=== PATIENT | female | born 1970 | race Caucasian/White ===

== ENCOUNTER 2021-06-10 16:13 | Emergency (ER) | payer MEDICARE, OTHER ==
[~2021-06-10] VITALS: Ht 162.6 cm; Wt 88.5 kg
[2021-06-10 16:13] VITALS: BP 144/79
[2021-06-10 17:09] LABS: BASOPHILS % (AUTO) 0.5 % (0.0-5.0); EOSINOPHILS % (AUTO) 0.3 % (0.0-8.0); HEMATOCRIT 41.3 % (36-48); LYMPHOCYTES % (AUTO) 38.9 % (21.0-51.0); MEAN CORPUSCULAR HEMOGLOBIN 30.3 pg (27.0-33.0); MEAN CORPUSCULAR HGB CONC 34.4 g/dL (32.0-36.0); MEAN CORPUSCULAR VOLUME 88.1 fL (79-99); MONOCYTES % (AUTO) 8.4 % (3.0-13.0); NEUTROPHILS % (AUTO) 51.6 % (40.0-77.0); PLATELET COUNT (AUTO) 275 K/uL (130-400); RED BLOOD CELL COUNT(AUTO) 4.69 MIL/uL (4.00-5.50); WHITE BLOOD COUNT (AUTO) 7.5 K/uL (4.8-10.8)
[2021-06-10 17:20] LABS: CREATININE 0.9 mg/dL (0.5-1.5); POTASSIUM 3.2 mmol/L (3.5-5.1)
[2021-06-10 17:25] LABS: ALBUMIN 3.6 g/dL (3.5-5.0); BILIRUBIN,TOTAL 0.2 mg/dL (0.2-1.0); TOTAL PROTEIN, SERUM 7.1 g/dL (6.0-8.3)
[2021-06-10] MEDS ORDERED: DICL50TA9 PO (18:53)
== END 2021-06-10 19:03 | disposition home or self-care (01) ==
LOC: EDH 16:13
DX: M79.89 Other specified soft tissue disorders (principal); E87.1 Hypo-osmolality and hyponatremia; E11.9 Type 2 diabetes mellitus without complications; I10 Essential (primary) hypertension; M79.7 Fibromyalgia; J44.9 Chronic obstructive pulmonary disease, unspecified; F31.9 Bipolar disorder, unspecified; Z90.49 Acquired absence of other specified parts of digestive tract; Z88.8 Allergy status to other drugs, medicaments and biological substances; Z88.6 Allergy status to analgesic agent; Z98.890 Other specified postprocedural states
CPT/HCPCS: 36415; 80053; 83880; 85025; 93005; 93971

== ENCOUNTER 2021-07-06 16:14 | Emergency (ER) | payer MEDICARE ==
[~2021-07-06] VITALS: Ht 162.6 cm; Wt 93.4 kg
[~2021-07-06 16:14] MED LIST: DICL50TA9 PO
[2021-07-06 17:25] LABS: BASOPHILS % (AUTO) 0.5 % (0.0-5.0); EOSINOPHILS % (AUTO) 0.1 % (0.0-8.0); HEMATOCRIT 43.6 % (36-48); LYMPHOCYTES % (AUTO) 46.5 % (21.0-51.0); MEAN CORPUSCULAR HEMOGLOBIN 31.3 pg (27.0-33.0); MEAN CORPUSCULAR HGB CONC 34.4 g/dL (32.0-36.0); MONOCYTES % (AUTO) 7.6 % (3.0-13.0); PLATELET COUNT (AUTO) 245 K/uL (130-400); RED BLOOD CELL COUNT(AUTO) 4.79 MIL/uL (4.00-5.50); RED CELL DISTRIBUTION WIDTH 12.5 % (11.0-15.5); WHITE BLOOD COUNT (AUTO) 7.4 K/uL (4.8-10.8)
[2021-07-06 17:26] LABS: APPEARANCE,URINE Clear (CLEAR); BILIRUBIN,URINE Negative (NEGATIVE); COLOR,URINE Yellow (YELLOW); GLUCOSE, URINE (UA) Negative (NEGATIVE); KETONES,URINE Negative (NEGATIVE); LEUKOCYTE ESTERASE ,URINE Negative (NEGATIVE); NITRATE,URINE Negative (NEGATIVE); OCCULT BLOOD,URINE Negative (NEGATIVE); PH,URINE 7.5 (5.0-8.0); PROTEIN,URINE Negative (NEGATIVE); UROBILINOGEN,URINE 0.2 mg/dL (0.2-1.0)
[2021-07-06 17:34] LABS: CREATININE 0.9 mg/dL (0.5-1.5); POTASSIUM 3.4 mmol/L (3.5-5.1)
[2021-07-06 17:41] LABS: ALBUMIN 3.9 g/dL (3.5-5.0); BILIRUBIN,TOTAL 0.4 mg/dL (0.2-1.0); TOTAL PROTEIN, SERUM 7.5 g/dL (6.0-8.3)
[2021-07-06] MEDS ORDERED: DICY20TA3 PO (19:14)
[2021-07-06] MEDS ORDERED: L.AC1CAP6 PO (19:14)
[2021-07-06] MEDS ORDERED: ONDA4TAB10 PO (19:14)
[2021-07-06] MEDS ORDERED: ONDANSETRON 4MG INJ IVP ONE (19:30)
[2021-07-06] MEDS ORDERED: POTASSIUM BICARB/CIT AC 25 MEQ TABLET.EFF PO ONE (19:30)
[2021-07-06] MEDS ORDERED: 0.9%NACL 1000ML 1,000 ML IV ONE (19:30)
[2021-07-06 20:55] VITALS: BP 152/84
== END 2021-07-06 20:57 | disposition home or self-care (01) ==
LOC: EDH 16:14
DX: K52.9 Noninfective gastroenteritis and colitis, unspecified (principal); E86.0 Dehydration; I10 Essential (primary) hypertension; E11.9 Type 2 diabetes mellitus without complications; E78.00 Pure hypercholesterolemia, unspecified; G40.909 Epilepsy, unspecified, not intractable, without status epilepticus; M19.90 Unspecified osteoarthritis, unspecified site; F41.9 Anxiety disorder, unspecified; F31.9 Bipolar disorder, unspecified; Z90.49 Acquired absence of other specified parts of digestive tract; Z98.890 Other specified postprocedural states; Z20.822 Contact with and (suspected) exposure to COVID-19
CPT/HCPCS: 36415; 71045; 80053; 81003; 84484; 85025; 87635; 87804 ×2; 93005; 96361; 96374; 99285; C9803; J2405; J7030

== ENCOUNTER 2021-08-26 19:13 | Emergency (ER) | payer MEDICARE ==
[~2021-08-26] VITALS: Ht 162.6 cm; Wt 93.9 kg
[~2021-08-26 19:13] MED LIST changes: +DICY20TA3 PO; +L.AC1CAP6 PO; +ONDA4TAB10 PO
[2021-08-26 19:56] VITALS: BP 156/77
[2021-08-26] MEDS ORDERED: ACETAMINOPHEN 500 MG TABLET PO ONE (22:00)
[2021-08-26] MEDS ORDERED: AMOX/CLAV 875/125MG TAB PO ONE (22:00)
[2021-08-26] MEDS ORDERED: ACET-66 PO (22:05)
[2021-08-26] MEDS ORDERED: AMOX1TAB16 PO (22:05)
== END 2021-08-26 22:37 | disposition home or self-care (01) ==
LOC: EDH 19:13
DX: K08.89 Other specified disorders of teeth and supporting structures (principal); E11.9 Type 2 diabetes mellitus without complications; I10 Essential (primary) hypertension; F43.10 Post-traumatic stress disorder, unspecified; Z88.8 Allergy status to other drugs, medicaments and biological substances; Z88.6 Allergy status to analgesic agent; Z79.899 Other long term (current) drug therapy; Z90.49 Acquired absence of other specified parts of digestive tract

== ENCOUNTER 2021-09-01 07:56 | Emergency (ER) | payer MEDICARE ==
[~2021-09-01] VITALS: Ht 162.6 cm; Wt 93.9 kg
[~2021-09-01 07:56] MED LIST changes: +ACET-66 PO; +AMOX1TAB16 PO
[2021-09-01 09:24] LABS: BASOPHILS % (AUTO) 0.8 % (0.0-5.0); EOSINOPHILS % (AUTO) 0.2 % (0.0-8.0); HEMATOCRIT 38.8 % (36-48); LYMPHOCYTES % (AUTO) 47.2 % (21.0-51.0); MEAN CORPUSCULAR HEMOGLOBIN 30.6 pg (27.0-33.0); MEAN CORPUSCULAR HGB CONC 34.3 g/dL (32.0-36.0); MEAN CORPUSCULAR VOLUME 89.4 fL (79-99); MONOCYTES % (AUTO) 7.5 % (3.0-13.0); NEUTROPHILS % (AUTO) 44.1 % (40.0-77.0); PLATELET COUNT (AUTO) 267 K/uL (130-400); RED BLOOD CELL COUNT(AUTO) 4.34 MIL/uL (4.00-5.50); RED CELL DISTRIBUTION WIDTH 12.5 % (11.0-15.5); WHITE BLOOD COUNT (AUTO) 6.2 K/uL (4.8-10.8)
[2021-09-01] MEDS ORDERED: TRAMADOL HCL 50 MG TABLET PO ONE (09:30)
[2021-09-01 09:35] LABS: CARBON DIOXIDE 33 mmol/L (21-32); CHLORIDE 100 mmol/L (101-111); GLOMERULAR FILTR. RATE CALC 62 mL/min (>60); GLUCOSE,RANDOM 90 mg/dL (70-105); POTASSIUM 4.4 mmol/L (3.5-5.1); SODIUM SERUM 139 mmol/L (136-145); UREA NITROGEN, BLOOD 15 mg/dL (7-18)
[2021-09-01 09:39] LABS: ACETAMINOPHEN < 1 mcg/mL (10-30); ALANINE AMINOTRANSFERASE 51 U/L (12-78); ALBUMIN 3.7 g/dL (3.5-5.0); ALCOHOL, BLOOD < 3 mg/dL (0-10); ASPARTATE AMINOTRANSFERASE 24 U/L (10-37); BILIRUBIN,TOTAL 0.2 mg/dL (0.2-1.0); SALICYLATE 4.9 mg/dL (2.8-20.0); TOTAL PROTEIN, SERUM 7.1 g/dL (6.0-8.3)
[2021-09-01 09:40] LABS: APPEARANCE,URINE CLEAR (CLEAR); BILIRUBIN,URINE NEGATIVE (NEGATIVE); COLOR,URINE YELLOW (YELLOW); GLUCOSE, URINE (UA) NEGATIVE (NEGATIVE); KETONES,URINE NEGATIVE (NEGATIVE); LEUKOCYTE ESTERASE ,URINE NEGATIVE (NEGATIVE); NITRATE,URINE NEGATIVE (NEGATIVE); OCCULT BLOOD,URINE NEGATIVE (NEGATIVE); PH,URINE 6.5 (5.0-8.0); PROTEIN,URINE NEGATIVE (NEGATIVE); UROBILINOGEN,URINE 0.2 mg/dL (0.2-1.0)
[2021-09-01 09:48] LABS: AMPHET/METH SCREEN,URINE NEGATIVE (NEGATIVE); BARBITURATE SCREEN, URINE NEGATIVE (NEGATIVE); BENZODIAZEPINES SCREEN,URINE NEGATIVE (NEGATIVE); CANNABINOID SCREEN,URINE NEGATIVE (NEGATIVE); COCAINE SCREEN,URINE NEGATIVE (NEGATIVE); OPIATE SCREEN,URINE NEGATIVE (NEGATIVE); PHENCYCLIDINE SCREEN,URINE NEGATIVE (NEGATIVE)
[2021-09-01] MEDS ORDERED: TRAM50TA4 PO (10:33)
[2021-09-01 10:40] VITALS: BP 136/64
== END 2021-09-01 10:43 | disposition home or self-care (01) ==
LOC: EDH 07:56
DX: K08.89 Other specified disorders of teeth and supporting structures (principal); R22.41 Localized swelling, mass and lump, right lower limb; M79.10 Myalgia, unspecified site; E11.9 Type 2 diabetes mellitus without complications; F31.9 Bipolar disorder, unspecified; I10 Essential (primary) hypertension; J44.9 Chronic obstructive pulmonary disease, unspecified; Z79.899 Other long term (current) drug therapy; Z88.5 Allergy status to narcotic agent; Z90.49 Acquired absence of other specified parts of digestive tract
CPT/HCPCS: 36415; 80053; 80305; 81003; 85025; 99283; G0481

== ENCOUNTER 2021-09-11 16:56 | Emergency (ER) | payer MEDICARE, OTHER ==
[~2021-09-11] VITALS: Ht 162.6 cm; Wt 99.8 kg
[~2021-09-11 16:56] MED LIST changes: +TRAM50TA4 PO
[2021-09-11 16:57] VITALS: BP 131/74
[2021-09-11] MEDS ORDERED: ACETAMINOPHEN 500 MG TABLET PO ONE (17:30)
[2021-09-11] MEDS ORDERED: CLINDAMYCIN 150 MG CAP PO ONE (17:30)
[2021-09-11 17:40] LABS: BASOPHILS % (AUTO) 0.4 % (0.0-5.0); EOSINOPHILS % (AUTO) 0.4 % (0.0-8.0); HEMATOCRIT 44.9 % (36-48); LYMPHOCYTES % (AUTO) 43.5 % (21.0-51.0); MEAN CORPUSCULAR HEMOGLOBIN 30.3 pg (27.0-33.0); MEAN CORPUSCULAR HGB CONC 35.4 g/dL (32.0-36.0); MEAN CORPUSCULAR VOLUME 85.5 fL (79-99); NEUTROPHILS % (AUTO) 43.7 % (40.0-77.0); PLATELET COUNT (AUTO) 243 K/uL (130-400); RED BLOOD CELL COUNT(AUTO) 5.25 MIL/uL (4.00-5.50); RED CELL DISTRIBUTION WIDTH 12.4 % (11.0-15.5); WHITE BLOOD COUNT (AUTO) 2.8 K/uL (4.8-10.8)
[2021-09-11 18:01] LABS: ALBUMIN 3.8 g/dL (3.5-5.0); CREATININE 1.1 mg/dL (0.5-1.5); POTASSIUM 3.4 mmol/L (3.5-5.1); TOTAL PROTEIN, SERUM 7.3 g/dL (6.0-8.3)
[2021-09-11] MEDS ORDERED: CLIN-141 PO (18:07)
[2021-09-11] MEDS ORDERED: IBUP-2071 PO (18:07)
[2021-09-11 18:38] LABS: BAND NEUTROPHILS % (MANUAL) 1 % (0-2); LYMPHOCYTES % (MANUAL) 38 % (22-44); MAN.DIFF COMMENT-IMPRESSION MANUAL DIFFERENTIAL; MONOCYTES % (MANUAL) 14 % (2-9); PLATELET MORPHOLOGY COMMENT ADEQUATE; REACTIVE LYMPHOCYTES 5 % (0-0); SEGMENTED NEUTROPHILS % 42 % (40-70)
== END 2021-09-11 18:16 | disposition home or self-care (01) ==
LOC: EDH 16:56
DX: K13.79 Other lesions of oral mucosa (principal); K02.9 Dental caries, unspecified; K05.10 Chronic gingivitis, plaque induced; M19.90 Unspecified osteoarthritis, unspecified site; J44.9 Chronic obstructive pulmonary disease, unspecified; E11.9 Type 2 diabetes mellitus without complications; M79.7 Fibromyalgia; I10 Essential (primary) hypertension; F43.10 Post-traumatic stress disorder, unspecified; Z88.8 Allergy status to other drugs, medicaments and biological substances; Z88.6 Allergy status to analgesic agent; Z79.899 Other long term (current) drug therapy; Z90.49 Acquired absence of other specified parts of digestive tract; Z98.890 Other specified postprocedural states
CPT/HCPCS: 36415; 80053; 83605; 85025

== ENCOUNTER 2021-09-27 15:20 | Emergency (ER) | payer MEDICARE, OTHER ==
[~2021-09-27] VITALS: Ht 162.6 cm; Wt 90.7 kg
[~2021-09-27 15:20] MED LIST changes: +CLIN-141 PO; +IBUP-2071 PO
[2021-09-27 15:22] VITALS: BP 144/80
[2021-09-27] MEDS: KETOROLAC 30MG VIAL (30MG/ML) IM ONE (16:28)
[2021-09-27 16:32] LABS: BASOPHILS % (AUTO) 0.6 % (0.0-5.0); EOSINOPHILS % (AUTO) 0.1 % (0.0-8.0); HEMATOCRIT 38.4 % (36-48); LYMPHOCYTES % (AUTO) 47.3 % (21.0-51.0); MEAN CORPUSCULAR HGB CONC 35.2 g/dL (32.0-36.0); MEAN CORPUSCULAR VOLUME 85.3 fL (79-99); NEUTROPHILS % (AUTO) 41.8 % (40.0-77.0); PLATELET COUNT (AUTO) 283 K/uL (130-400); RED CELL DISTRIBUTION WIDTH 12.2 % (11.0-15.5); WHITE BLOOD COUNT (AUTO) 8.4 K/uL (4.8-10.8)
[2021-09-27 16:40] LABS: CREATININE 1.1 mg/dL (0.5-1.5); POTASSIUM 3.2 mmol/L (3.5-5.1)
[2021-09-27 16:45] LABS: ALBUMIN 3.7 g/dL (3.5-5.0); TOTAL PROTEIN, SERUM 6.9 g/dL (6.0-8.3); URIC ACID 4.3 mg/dL (2.6-7.2)
== END 2021-09-27 17:28 | disposition home or self-care (01) ==
LOC: EDH 15:20
DX: M79.672 Pain in left foot (principal); E11.9 Type 2 diabetes mellitus without complications; I10 Essential (primary) hypertension; J44.9 Chronic obstructive pulmonary disease, unspecified; M19.90 Unspecified osteoarthritis, unspecified site; M79.7 Fibromyalgia; F41.9 Anxiety disorder, unspecified; Z88.5 Allergy status to narcotic agent; Z90.49 Acquired absence of other specified parts of digestive tract; Z79.1 Long term (current) use of non-steroidal anti-inflammatories (NSAID); Z79.899 Other long term (current) drug therapy
CPT/HCPCS: 99284; 73700; 84550; 80053; 85025; 36415; 96372; J1885

== ENCOUNTER 2024-05-07 13:46 | Emergency (ER) | payer MEDICARE ==
[~2024-05-07] VITALS: Ht 162.6 cm; Wt 90.7 kg
[~2024-05-07 13:46] MED LIST changes: +ONDA-243 PO; -ONDA4TAB10 PO
[2024-05-07] MEDS ORDERED: AMOX1TAB16 PO (14:02)
[2024-05-07] MEDS ORDERED: IBUP-2077 PO (14:02)
--- NOTE | 2024-05-07 14:03 | ERN ---
ED Note History of Present Illness Stated Complaint: DENTAL ISSUE Chief Complaint: Tooth Ache/Pain Time Seen by MD: 13:48 Dictation: PATIENT IS A 54-YEAR-OLD FEMALE COMING IN TODAY WITH DENTAL PAIN AT TOOTH 14. WITH SOME DECAY SHE HAS HAD FOR TWO WEEKS. SHE STATES [place], DID NOT SEE A DENTIST WHEN SHE WAS [place] AND NOW IS DOWN HERE, IN HIS LOOKING FOR A DENTIST. SHE HAS NOT LOOKED IN THE [facility] BECAUSE SHE SAID SHE DOES NOT HAVE ANY FUNDING. SHE HAS HAD NO FEVER NO CHILLS NO NAUSEA VOMITING. SHE WAS ADVISED THAT SHE LOOKING THE [facility] FOR AFTER HOURS NUMBER OF A DENTIST OR [place] WOULD BE AN OPTION. Allergies: Coded Allergies: bupropion (Unverified Allergy, Unknown, 06/10/21) morphine (Unverified Allergy, Unknown, 06/10/21) prednisolone (Unverified Allergy, Unknown, 06/10/21) ziprasidone (Unverified Allergy, Unknown, 06/10/21) Home Meds Active Scripts Ibuprofen (Ibuprofen 800 mg Tab) 800 Mg Tab, 800 MG PO Q8H PRN for fever or pain, #30 TAB 0 Refills Prov:JANET ANTOINE NP 05/07/24 Amoxicillin/Potassium Clav (Amox Tr-K Clv 875-125 mg Tab) 875 Mg-125 Mg Tablet, 1 EACH PO BID for 10 Days, #20 TAB 0 Refills Prov:JANET ANTOINE NP 05/07/24 Ibuprofen (Ibuprofen) 800 Mg Tablet, 800 MG PO TIDMEALS PRN for PAIN, #45 TAB Prov:JESSICA GUAJARDO 09/11/21 Clindamycin HCl (Clindamycin HCl) 300 Mg Capsule, 1 CAP PO QID for 10 Days, #40 CAP 0 Refills Prov:JESSICA GUAJARDO 09/11/21 Tramadol Hcl (Tramadol HCl) 50 Mg Tablet, 50 MG PO QID for PAIN, #20 TAB Prov:CHRISTINA LEIJA MD 09/01/21 Acetaminophen (Tylenol) 500 Mg Tab, 500 MG PO Q4HPRN PRN for PAIN LEVEL 4 TO 6, #15 TAB Prov:LIN MENDES 08/26/21 Amoxicillin/Potassium Clav (Amox Tr-K Clv 875-125 mg Tab) 1 Each Tablet, 1 EACH PO BID, #14 TAB Prov:LIN MENDESP 08/26/21 Dicyclomine HCl (Dicyclomine HCl) 20 Mg Tablet, 20 MG PO TID, #15 TAB Prov:LIN MENDES 07/06/21 L.acidoph & Paracasei,B.lactis (Probiotic) 1 Each Capsule, 1 EACH PO DAILY, #15 CAP Prov:LIN MENDESP 07/06/21 Ondansetron (Ondansetron Odt) 4 Mg Tab.rapdis, 4 MG PO TID, #15 TAB Prov:LIN MENDESP 07/06/21 Diclofenac Sodium (Diclofenac Sodium) 50 Mg Tablet.dr, 50 MG PO TIDP PRN for SEVERE PAIN (7-10), #20 TAB 0 Refills Prov:LAURE BAÑUELOS MD 06/10/21 Past Medical History Past Medical History: Anxiety, Arthritis, COPD, Diabetes-Type II, Diverticulitis, Fibromyalgia, Hypertension Additional Past Medical Hx: ,Dental caries, PTSD Surgical History: Cholecystectomy, Family History: Negative Social History: Negative, Lives with family, Other History: Not Applicable RN Note Reviewed/Agreed w/PFSH: Yes Review of System Dictation CONSTITUTIONAL: NEGATIVE EXCEPT FOR HPI HEAD/FACE: NEGATIVE EXCEPT FOR HPI EENT: NEGATIVE EXCEPT FOR HPI DENTAL PAIN WITH CARIES RESPIRATORY: NEGATIVE EXCEPT FOR HPI GASTROINTESTINAL/ABDOMINAL: NEGATIVE EXCEPT FOR HPI GENITOURINARY: NEGATIVE EXCEPT FOR HPI MUSCULOSKELETAL: NEGATIVE EXCEPT FOR HPI INTEGUMENTARY: NEGATIVE EXCEPT FOR HPI NEUROLOGICAL/PSYCH: NEGATIVE EXCEPT FOR HPI HEMATOLOGIC/LYMPHATIC: NEGATIVE EXCEPT FOR HPI ALL SYSTEMS NEGATIVE, EXCEPT NOTED ABOVE. 13 POINT REVIEW OF SYSTEMS ASSESSED AND ALL NEGATIVE EXCEPT FOR ABOVE. Initial Vital Sign VS Vital Signs Date Time Temp Pulse Resp B/P (MAP) Pulse Ox O2 Delivery O2 Flow Rate FiO2 05/07/24 13:51 97.9 92 16 165/99 98 Room Air 0 05/07/24 14:50 21 Physical Exam Dictation VITAL SIGNS REVIEWED GENERAL APPEARANCE: ALERT, ORIENTED X 3, MODERATE ACUTE DISTRESS, WELL DEV ELOPED, NOURISHED. HEAD AND FACE: NON-TRAUMATIC. EYES: PERRL, PINK CONJUNCTIVAS, EYELID NO TRAUMA, ANTERIOR CHAMBER WITH ARCUS SENILIS. EARS: PINNAS INTACT AND NO SIGNS OF TRAUMA OR ERYTHEMA EAR CANALS CLEAR AND NO DISCHARGE TM NO ERYTHEMA NOSE: NO DISCHARGE, NO BLEEDING. OROPHARYNX: TOOTH 14. BLACK WITH DENTAL CARIES NOTED. MILD GINGIVAL INFLAMMATION NO FACIAL SWELLING PHARYNX CLEAR,NO ERYTHEMA, TONSILS NO EXUDATES, NO ABSCESSES NOTED, MUCOUS MEMBRANE MOIST NECK: SUPPLE, NON-TENDER, NO THYROMEGALY, NO MASSES, NO JVD, NO BRUITS BREAST:DEFERRED CHEST:NO TENDERNESS, NO CREPITUS, NO PARADOXICAL MOVEMENT, NO RETRACTIONS LUNGS:CLEAR, WELL-VENTILATED, SYMMETRIC, NO RALES, NO WHEEZING, NO RHONCHI, NO STRIDOR, GOOD BREATH SOUNDS BILATERALLY HEART: REGULAR RATE, REGULAR RHYTHM, NO MURMUR, NO GALLOPS VASCULAR: NO PERIPHERAL EDEMA, ABDOMEN: SOFT, POSITIVE BOWEL SOUNDS, NONDISTENDED, NO GUARDING, NONTENDER, NO REBOUND, NO MASSES NO HEPATOMEGALY, NO SPLENOMEGALY, NO MOSLEY'S SIGN, NO HERNIAS. RECTAL: DEFERRED GENITAL: DEFERRED NEUROLOGICAL: NORMAL SPEECH, MOTOR FUNCTION INTACT, SENSORY FUNCTION INTACT MUSCULOSKELETAL: NECK NONTENDER, FULL RANGE OF MOTION, BACK NONTENDER, FULL RANGE OF MOTION, EXTREMITIES: NONTENDER, FULL RANGE OF MOTION SKIN: COLOR PINK, DRY, NO TURGOR, NO RASH, NO LACERATIONS, NO ABRASIONS, NO CONTUSIONS. LYMPHATIC: DEFERRED Results (Laboratory/Radiology) Labs Reviewed?: Yes ED Course ED Course Orders Procedure Category Date Status Time Ketorolac 60mg/2ml PHA 05/07/24 Complete (Toradol 60mg/2ml) 14:00 Current Medications Medications (Trade) Dose Ordered Sig/Danielle Route PRN Reason Start Time Stop Time Status Last Admin Dose Admin Ketorolac Tromethamine (toRADol 60MG/ 2ML) 60 mg ONCE ONCE IM 05/07/24 14:00 05/07/24 14:01 DC 05/07/24 14:41 Vital Signs Date Time Temp Pulse Resp B/P (MAP) Pulse Ox O2 Delivery O2 Flow Rate FiO2 05/07/24 14:50 98.2 88 16 132/66 99 Room Air* 0 21 05/07/24 13:51 97.9 92 16 165/99 98 Room Air 0 [employer] HUNDRED PATIENT WILL BE GIVEN KETOROLAC IM DISCHARGED HOME WITH [employer] AND TOLD TO LOOKING THE [facility] FOR AN AFTER HOURS NUMBER OR GO TO [facility] Decision Making MDM MEDICAL DISCHARGE MAKING BASED ON EMPIRIC TREATMENT FOR DENTALGIA. PATIENT GIVEN TORADOL IM. SHE WILL BE DISCHARGED HOME WITH [employer] 875 AND IBUPROFEN TOLD TO SEE THE [facility] FOR A DENTIST WITH A AN AFTER HOURS NUMBER OR SHE COULD EXPLORE OPTIONS IN [place] FOR DENTAL CARE DX & DISP Disposition: Discharge Departure Impression: Primary Impression: Dental caries Additional Impression: Pain, dental Condition: Stable Scripts Ibuprofen (Ibuprofen 800 mg Tab) 800 Mg Tab 800 MG PO Q8H PRN for fever or pain, #30 TAB 0 Refills Prov: JANET ANTOINE SILK SCREENER 05/07/24 Amoxicillin/Potassium Clav (Amox Tr-K Clv 875-125 mg Tab) 875 Mg-125 Mg Tablet 1 EACH PO BID for 10 Days, #20 TAB 0 Refills Prov: JANET ANTOINE SILK SCREENER 05/07/24 Additional Instructions: FOLLOW-UP WITH PRIMARY CARE PROVIDER IN 1 TO 2 DAYS. TAKE MEDICATIONS DIRECTED HERE IN THE EMERGENCY ROOM. OKAY TO CONTINUE HOME MEDICATIONS UNLESS OTHERWISE DISCUSSED DURING YOUR VISIT IN THE EMERGENCY ROOM TODAY. RETURN TO YOUR NEAREST EMERGENCY ROOM IF SYMPTOMS WORSEN OR IF THERE IS NO IMPROVEMENT. CALL 911 IF YOU NEED IMMEDIATE ASSISTANCE. TAKE TYLENOL OR MOTRIN [id number] NEEDED AND IF NO CONTRAINDICATIONS ARE PRESENT. INCREASE ORAL HYDRATION. A WOUND CULTURE OR URINE CULTURE WAS ORDERED HERE IN THE EMERGENCY ROOM DEPARTMENT PLEASE FOLLOW-UP WITH PRIMARY CARE PROVIDER AND ADVISE THEM TO GET REPEAT PORTS FROM OUR FACILITY. IF YOU HAD ANY ANDREZ WRAP/SPLINTS THAT WERE APPLIED HERE, PLEASE DO NOT REMOVE THEM UNTIL YOU SEE YOUR PRIMARY CARE OR SPECIALTY. TAKE [employer] DIRECTED UNTIL GONE. SUGGEST LOOKING IN THE [facility] FOR A DENTIST WITH A AN AFTER HOURS EMERGENCY NUMBER OR GO TO [facility] FOR INEXPENSIVE DENTAL CARE. Referrals: SELF,REFERRAL (PCP) Time of Disposition: 14:01 I have reviewed the case, and I agree with, Diagnosis and Plan JANET ANTOINE NP May 07, 2024 14:03 SUKHJINDER MILLAN DO May 08, 2024 07:28
[2024-05-07] MEDS: ketOROlac 60 MG VIAL (30MG/ML) IM ONE (14:41)
[2024-05-07 14:50] VITALS: BP 132/66; PULSE 88; RESP 16; TEMP 98.2; O2SAT 99
== END 2024-05-07 14:52 | disposition home or self-care (01) ==
LOC: EDH 13:46
DX: K02.9 Dental caries, unspecified (principal); K08.89 Other specified disorders of teeth and supporting structures; E11.9 Type 2 diabetes mellitus without complications; I10 Essential (primary) hypertension; J44.9 Chronic obstructive pulmonary disease, unspecified; M19.90 Unspecified osteoarthritis, unspecified site; M79.7 Fibromyalgia; Z88.5 Allergy status to narcotic agent; Z88.8 Allergy status to other drugs, medicaments and biological substances; Z90.49 Acquired absence of other specified parts of digestive tract
CPT/HCPCS: 99283; 96372; J1885